=== PATIENT | female | born 1995 | race Caucasian/White ===

== ENCOUNTER 2025-01-28 03:20 | Emergency (ER) | payer OTHER ==
[~2025-01-28] VITALS: Ht 167.6 cm; Wt 61.2 kg
[2025-01-28 04:36] LABS: BASOPHILS # (AUTO) 0.1 K/uL (0.0-0.2); BASOPHILS % (AUTO) 0.7 % (0.0-2.0); EOSINOPHILS # (AUTO) 0.2 K/uL (0.0-0.7); HEMATOCRIT 42 % (33-45); HEMOGLOBIN 13.8 g/dL (11.5-14.8); LYMPHOCYTES # (AUTO) 2.1 K/uL (0.8-4.8); LYMPHOCYTES % (AUTO) 25.2 % (20.0-44.0); MEAN CORPUSCULAR HEMOGLOBIN 30 PG (26.0-33.0); MEAN CORPUSCULAR HGB CONC 33 g/dl (31.0-36.0); MEAN CORPUSCULAR VOLUME 89 fL (82-100); MONOCYTES # (AUTO) 0.6 K/uL (0.1-1.30); MONOCYTES % (AUTO) 7.4 % (2.0-12.0); NEUTROPHILS # (AUTO) 5.4 K/uL (1.8-8.9); NEUTROPHILS % (AUTO) 64.7 % (43.0-81.0); PLATELET COUNT (AUTO) 169 K/uL (150-450); RED BLOOD CELL COUNT(AUTO) 4.67 MIL/uL (4.0-5.2); WHITE BLOOD COUNT (AUTO) 8.4 K/uL (4.3-11.0)
[2025-01-28 04:45] LABS: CALCIUM, SERUM 8.9 mg/dL (8.5-10.1)
[2025-01-28 04:59] LABS: BILIRUBIN,TOTAL 0.2 mg/dL (0.2-1.0); CREATININE 0.6 mg/dL (0.6-1.3); POTASSIUM 3.9 mmol/L (3.5-5.1); TOTAL PROTEIN, SERUM 7.5 g/dL (6.4-8.2)
[2025-01-28 05:08] VITALS: BP 128/86; TEMP 98.8; O2SAT 98
== END 2025-01-28 05:09 | disposition left against medical advice (07) ==
LOC: ER 03:21
DX: R07.0 Pain in throat (principal); R22.0 Localized swelling, mass and lump, head; R07.9 Chest pain, unspecified
CPT/HCPCS: 36415; 71045-TC; 80053-TC; 83880; 84484-TC; 85025-TC

== ENCOUNTER → 2025-01-28 | Emergency (ER) | payer OTHER ==
[~2025-01-28] VITALS: Ht 170.2 cm; Wt 61.2 kg
[2025-01-28 02:57] VITALS: BP 135/81; TEMP 98.8; O2SAT 98
== END | disposition left against medical advice (07) ==
LOC: ER 02:31
DX: R11.10 Vomiting, unspecified (principal); R20.2 Paresthesia of skin; Z53.21 Procedure and treatment not carried out due to patient leaving prior to being seen by health care provider

== ENCOUNTER 2025-03-02 17:28 | Emergency (ER) | payer OTHER ==
[~2025-03-02] VITALS: Ht 167.6 cm; Wt 56.7 kg
[2025-03-02] MEDS ORDERED: ACETAMINOPHEN ES 500 MG TABLET ONE (19:15)
[2025-03-02] MEDS ORDERED: IBUPROFEN 400 MG TABLET ONE (19:15)
[2025-03-02] MEDS: IBUPROFEN 400 MG TABLET PO ONE (19:17)
[2025-03-02] MEDS: ACETAMINOPHEN ES 500 MG TABLET PO ONE (19:18)
[2025-03-02] MEDS ORDERED: IBUP-1490 PO (19:32)
[2025-03-02] MEDS ORDERED: LIDO30AD10 TP (19:32)
[2025-03-02 19:45] VITALS: BP 112/77; TEMP 98.3; O2SAT 100
== END 2025-03-02 19:45 | disposition home or self-care (01) ==
LOC: ER 17:34
DX: M25.562 Pain in left knee (principal); M25.522 Pain in left elbow; V49.09XA Driver injured in collision with other motor vehicles in nontraffic accident, initial encounter; Y93.89 Activity, other specified; Y92.89 Other specified places as the place of occurrence of the external cause; Y99.8 Other external cause status
CPT/HCPCS: 73080-TC; 73564-TC